=== PATIENT | female | born 1980 | race Two or more races ===

== ENCOUNTER 2016-11-22 19:34 | Emergency (ER) | payer MEDICAID ==
[~2016-11-22] VITALS: Ht 167.6 cm; Wt 67.1 kg
--- NOTE | 2016-11-22 19:56 | Emergency Room Report ---
History of Present Illness General Chief Complaint: Chest Pain Source: Patient Present Illness HPI Patient presents with complaints of midsternal chest discomfort Shortness of breath Patient reports that she's been feeling some dizziness over the past 2 weeks however over the past 2 days she feels that she cannot sleep feels anxious There was a description of some pleurisy initially however with further questioning patient complains mainly of palpitation sensation and feeling short of breath with this During the history of present illness patient becomes tearful and upon further questioning of personal problems patient simply reports yes, but does not give further input otherwise Denies any homicidal or suicidal thoughts Allergies: Coded Allergies: No Known Allergies (Unverified , 11/22/16) Patient History Past Medical History: see triage record Pertinent Family History: none Last Menstrual Period: 10/31/16 Now: No Reviewed Nursing Documentation: PMH: Agreed, PSxH: Agreed Nursing Documentation-PM Past Medical History: No Stated History Review of Systems All Other Systems: negative except mentioned in HPI Physical Exam Vital Signs Date Time Temp Pulse Resp B/P Pulse Ox O2 Delivery O2 Flow Rate FiO2 11/22/16 19:38 98.2 66 15 112/72 100 Room Air Sp02 EP Interpretation: reviewed, normal General Appearance: well appearing - But mildly anxious Head: normocephalic, atraumatic Eyes: bilateral eye EOMI, bilateral eye PERRL ENT: hearing grossly normal, normal pharynx, TMs + canals normal, uvula midline Neck: full range of motion, supple, no meningismus, no bony tend Respiratory: lungs clear, normal breath sounds, no rhonchi, no respiratory distress, no retraction, no accessory muscle use Cardiovascular #1: normal peripheral pulses, regular rate, rhythm, no edema, no gallop, no JVD, no murmur Gastrointestinal: normal bowel sounds, non tender, soft, no mass, no organomegaly, non-distended, no guarding, no hernia, no pulsatile mass, no rebound Genitourinary: no CVA tenderness Musculoskeletal: normal inspection Neurologic: oriented x3, responsive, bung sewer III-XII nml as tested, motor strength/ tone normal, sensory intact Psychiatric: mood/affect normal Skin: normal color, no rash, warm/dry, palpation normal Lymphatic: normal inspection, no adenopathy Medical Decision Making Diagnostic Impression: Primary Impression: Chest pain ER Course Given the patient's complaints multiple differentials are considered Including but not limited to cardiac, cardiopulmonary, vascular pathology Patient has very low risk factors for PE D-dimer was obtained D-dimer is negative patient's blood work is at baseline levels patient continues to do wel my suspicion for PE is low given the patient's risk factors and medical evaluation Patient at this time requesting sleeping medication I did notify her that it is not appropriate to the emergency room and the patient would be best served by following up by primary physician Labs Test 11/22/16 19:53 White Blood Count 11.5 K/UL (4.8-10.8) Red Blood Count 4.04 M/UL (4.20-5.40) Hemoglobin 13.6 G/DL (12.0-16.0) Hematocrit 37.4 % (37.0-47.0) Mean Corpuscular Volume 93 FL (80-99) Mean Corpuscular Hemoglobin 33.6 PG (27.0-31.0) Mean Corpuscular Hemoglobin Concent 36.3 G/DL (32.0-36.0) Red Cell Distribution Width 12.7 % (11.6-14.8) Platelet Count 255 K/UL (150-450) Mean Platelet Volume 8.0 FL (6.5-10.1) Neutrophils (%) (Auto) 62.0 % (45.0-75.0) Lymphocytes (%) (Auto) 28.1 % (20.0-45.0) Monocytes (%) (Auto) 8.1 % (1.0-10.0) Eosinophils (%) (Auto) 0.5 % (0.0-3.0) Basophils (%) (Auto) 1.3 % (0.0-2.0) D-Dimer 399 ng/mL (<500) Urine HCG, Qualitative Negative Sodium Level 137 mEQ/L (135-145) Potassium Level 4.2 mEQ/L (3.4-4.9) Chloride Level 98 mEQ/L (98-107) Carbon Dioxide Level 21 mEQ/L (20-30) Anion Gap 18 (5-15) Blood Urea Nitrogen 10 mg/dL (7-23) Creatinine 0.6 mg/dL (0.5-0.9) Estimat Glomerular Filtration Rate > 60 mL/min (>60) Glucose Level 110 mg/dL (74-106) Calcium Level 8.7 mg/dL (8.6-10.2) Total Bilirubin < 0.2 mg/dL (0.0-1.2) Aspartate Amino Transf (AST/SGOT) 22 U/L (5-40) Alanine Aminotransferase (ALT/SGPT) 11 U/L (3-33) Alkaline Phosphatase 50 U/L (35-104) Total Creatine Kinase 75 U/L (26-140) Creatine Kinase MB < 1.5 ng/mL (< 3.8) Creatine Kinase MB Relative Index Troponin I < 0.30 ng/mL (<=0.30) Total Protein 7.1 g/dL (6.6-8.7) Albumin 3.8 g/dL (3.5-5.2) Globulin 3.3 g/dL Albumin/Globulin Ratio 1.1 (1.0-2.7) Lipase 26 U/L (< 60) Urine Opiates Screen Negative (NEGATIVE) Urine Barbiturates Screen Negative (NEGATIVE) Phencyclidine (PCP) Screen Negative (NEGATIVE) Urine Amphetamines Screen Negative (NEGATIVE) Urine Benzodiazepines Screen Negative (NEGATIVE) Urine Cocaine Screen Negative (NEGATIVE) Urine Marijuana (THC) Screen Negative (NEGATIVE) EKG Diagnostic Results Rate: normal Rhythm: NSR ST Segments: no acute changes Rhythm Strip Diag. Results EP Interpretation: yes Rate: 66 Rhythm: NSR, no PVC's, no ectopy Chest X-Ray Diagnostic Results EP Interpretation: Yes Findings: no consolidation, no effusion, no pneumothorax Number of Views: 1 Last Vital Signs Date Time Temp Pulse Resp B/P Pulse Ox O2 Delivery O2 Flow Rate FiO2 11/22/16 19:38 98.2 66 15 112/72 100 Room Air Status: improved Disposition: HOME, SELF-CARE Condition: Improved Additional Instructions: Patient is provided with the discharge instructions notified to follow up with primary doctor in the next 2-3 days otherwise return to the er with any worsening symptoms. Please note that this report is being documented using [employer] technology. This can lead to erroneous entry secondary to incorrect interpretation by the dictating instrument. HARLEY FAJARDO D.O. Nov 22, 2016 19:56
[2016-11-22 20:12] LABS: BASOPHILS % (AUTO) 1.3 % (0.0-2.0); EOSINOPHILS % (AUTO) 0.5 % (0.0-3.0); LYMPHOCYTES % (AUTO) 28.1 % (20.0-45.0); MEAN CORPUSCULAR HEMOGLOBIN 33.6 PG (27.0-31.0); MEAN CORPUSCULAR HGB CONC 36.3 G/DL (32.0-36.0); MEAN CORPUSCULAR VOLUME 93 FL (80-99); MONOCYTES % (AUTO) 8.1 % (1.0-10.0); PLATELET COUNT 255 K/UL (150-450); RED BLOOD COUNT 4.04 M/UL (4.20-5.40); RED CELL DISTRIBUTION WIDTH 12.7 % (11.6-14.8); WHITE BLOOD COUNT 11.5 K/UL (4.8-10.8)
[2016-11-22 20:13] VITALS: BP 99/53
[2016-11-22 20:30] LABS: ALANINE AMINOTRANSFERASE 11 U/L (3-33); ALBUMIN/GLOBULIN RATIO 1.1 (1.0-2.7); ANION GAP 18 (5-15); ASPARTATE AMINO TRANSFERASE 22 U/L (5-40); CALCIUM 8.7 mg/dL (8.6-10.2); CARBON DIOXIDE 21 mEQ/L (20-30); CHLORIDE 98 mEQ/L (98-107); CREATININE 0.6 mg/dL (0.5-0.9); GLOMERULAR FILTRATION RATE > 60 mL/min (>60); HEMOLYSIS 158; LIPASE 26 U/L (< 60); POTASSIUM 4.2 mEQ/L (3.4-4.9); SODIUM 137 mEQ/L (135-145); TOTAL PROTEIN 7.1 g/dL (6.6-8.7); TROPONIN I < 0.30 ng/mL (<=0.30)
[2016-11-22 20:41] LABS: CKMB < 1.5 ng/mL (< 3.8)
[2016-11-22 21:10] VITALS: BP 99/53
--- NOTE | 2016-11-23 11:06 | Diagnostic Imaging Report ---
Indication: Chest pain Technique: One view of the chest Comparison: none Findings: Lungs and pleural spaces are clear. Heart size is normal. There are bilateral breast implants Impression: No acute process
--- NOTE | 2016-11-23 13:42 | Cardiology Report ---
APPROVED REPORT EKG Measurement Heart [id number] CT [id number] [id number] Normal sinus rhythm Normal ECG
== END 2016-11-22 21:09 | disposition home or self-care (01) ==
LOC: EMR 20:10
DX: R07.9 Chest pain, unspecified (principal); R06.02 Shortness of breath; R42 Dizziness and giddiness
CPT/HCPCS: 36415; 71010; 80053; 80300; 81025; 82550; 82553; 83690; 84484; 85025; 85379; 93005; 99283

== ENCOUNTER 2017-06-23 18:57 | Emergency (ER) | payer SELFPAY ==
[~2017-06-23] VITALS: Ht 165.1 cm; Wt 67.6 kg
[2017-06-23 19:29] VITALS: BP 109/74
[2017-06-23] MEDS ORDERED: ACETAMINOPHEN-1 EAC1 ORAL (20:38)
[2017-06-23] MEDS ORDERED: IBUPROFEN600 MG ORAL (20:38)
[2017-06-23] MEDS ORDERED: Tylenol #3 tab (300mg/30mg) ORAL ONE (20:45)
[2017-06-23 21:00] VITALS: BP 112/75
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
--- NOTE | 2017-06-24 09:58 | Diagnostic Imaging Report ---
Indication: PAIN Technique: 2 views of the right tibia and fibula Comparison: none Findings: No acute fractures. No dislocations. Joint spaces are preserved. No radiopaque foreign body Impression: Negative
--- NOTE | 2017-06-24 10:00 | Diagnostic Imaging Report ---
Indication: PAIN Technique: 3 views of the left shoulder Comparison: None Findings: No acute fractures or dislocations. Joint spaces are preserved. Impression: Negative
== END 2017-06-23 21:00 | disposition home or self-care (01) ==
LOC: EMR 20:14
DX: S40.011A Contusion of right shoulder, initial encounter (principal); S80.11XA Contusion of right lower leg, initial encounter; Y04.2XXA Assault by strike against or bumped into by another person, initial encounter; Y92.009 Unspecified place in unspecified non-institutional (private) residence as the place of occurrence of the external cause; R51 Headache
CPT/HCPCS: 99284